=== PATIENT | male | born 1960 | race American Indian/Alaskan Native ===

== ENCOUNTER 2017-10-10 15:17 | Emergency (ER) | payer BC ==
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
[2017-10-10 19:30] VITALS: BP 171/82
== END 2017-10-10 19:26 | disposition home or self-care (01) ==
LOC: ED 15:17
DX: S05.01XA Injury of conjunctiva and corneal abrasion without foreign body, right eye, initial encounter (principal); W51.XXXA Accidental striking against or bumped into by another person, initial encounter; Y93.89 Activity, other specified; Y92.89 Other specified places as the place of occurrence of the external cause; Y99.8 Other external cause status
CPT/HCPCS: 99282